=== PATIENT | female | born 1970 | race Caucasian/White ===

== ENCOUNTER 2019-06-02 06:00 | Inpatient (IN) | payer OTHER ==
[~2019-06-02] VITALS: Ht 157.5 cm; Wt 117.9 kg
[2019-06-02] MEDS ORDERED: CEFAZOLIN SOD 2 GM in D5W 50 ML IV ONE (07:00)
[2019-06-02] MEDS ORDERED: TRAZ150T77 PO (07:12)
[2019-06-02] MEDS ORDERED: SERT50TA12 PO (07:12)
[2019-06-02] MEDS ORDERED: BEN50 PO (07:12)
[2019-06-02] MEDS ORDERED: MIDAZOLAM HCL 5 MG/5 ML VIAL IVP ONE (10:34)
[2019-06-02] MEDS ORDERED: ePHEDrine sulfate 50 MG/ML VIAL IVP ONE (10:34)
[2019-06-02] MEDS ORDERED: LR 1,000 ML IV.SOLN IV ONE (10:34)
[2019-06-02] MEDS ORDERED: BACITRACIN ZINC 15 GM TOPICAL OINTMENT TP ONE (10:34)
[2019-06-02] MEDS ORDERED: ISOFLURANE 15 MIN GAS INH ONE (10:34)
[2019-06-02] MEDS ORDERED: PROPOFOL 200MG/ 20ML VIAL (DIPRIVAN) IV ONE (10:34)
[2019-06-02] MEDS ORDERED: HYDROmorphone 2 MG/ML VIAL IVP ONE (10:34)
[2019-06-02] MEDS ORDERED: DEXAMETHASONE SOD PHOSPHATE 4 MG/ML VIAL IVP ONE (10:34)
[2019-06-02] MEDS ORDERED: fentaNYL CITRATE/PF 100 MCG/2 ML AMP IVP ONE (10:34)
[2019-06-02] MEDS ORDERED: LIDOCAINE/EPI 1% 1:100000 20 ML VIAL INJ ONE (10:34)
[2019-06-02] MEDS ORDERED: NS IRRIG SOLN 1000 ML IR ONE (10:34)
[2019-06-02] MEDS ORDERED: SUCCINYLCHOLINE CHLORIDE 20 MG/ML(QUELICIN) IVP ONE (10:34)
[2019-06-02] MEDS ORDERED: ROCURONIUM BROMIDE 10 MG/ML (ZEMURON) IV ONE (10:34)
[2019-06-02] MEDS ORDERED: KCL 20 mEq in D5/0.45NS 1000mL 1,000 ML IV SCH (15:55)
[2019-06-02] MEDS ORDERED: ONDANSETRON 4 MG ODT TAB PO PRN (16:00)
[2019-06-02] MEDS ORDERED: ONDANSETRON HCL 4 MG/2 ML VIAL IVP PRN ×2 (16:00→16:15)
[2019-06-02] MEDS ORDERED: HYDROmorphone 1 MG INJ. 1 MG/ML AMPUL IVP PRN (16:15)
[2019-06-02] MEDS ORDERED: HYDROmorphone 1 MG INJ. 1 MG/ML AMPUL ONE (16:30)
[2019-06-02 16:55] VITALS: BP_SYST 133
[2019-06-02] MEDS: KCL 20 mEq in D5/0.45NS 1000mL 1,000 ML IV SCH (17:45)
[2019-06-02 20:00] VITALS: BP_SYST 130
[2019-06-02] MEDS: CALCIUM 500 MG/TAB PO SCH (20:56)
[2019-06-02] MEDS: HYDROcodone/ACETAMIN 5-325 MG TAB (NORCO/ VICODIN) PO PRN (20:57)
[2019-06-02] MEDS ORDERED: traZODone HCL 50 MG TABLET (DESYREL) PO SCH (21:00)
[2019-06-02] MEDS ORDERED: DIPHENHYDRAMINE HCL 50 MG CAPSULE PO SCH (21:00)
[2019-06-02] MEDS ORDERED: SERTRALINE HCL 50 MG TABLET PO SCH (21:00)
[2019-06-02 21:29] LABS: ALBUMIN 3.1 g/dL (3.4-4.8); CALCIUM 7.6 mg/dL (8.4-11.0)
[2019-06-03] MEDS: KCL 20 mEq in D5/0.45NS 1000mL 1,000 ML IV SCH ×2 (00:19→06:22)
[2019-06-03 00:42] VITALS: BP_SYST 100
[2019-06-03] MEDS: HYDROcodone/ACETAMIN 5-325 MG TAB (NORCO/ VICODIN) PO PRN ×2 (04:35→09:12)
[2019-06-03 06:49] LABS: ALBUMIN 3.1 g/dL (3.4-4.8); CALCIUM 7.7 mg/dL (8.4-11.0)
[2019-06-03] MEDS ORDERED: LEVOTHYROXINE SODIUM 0.15 MG TABLET PO SCH (07:00)
[2019-06-03 08:00] VITALS: BP_SYST 117
[2019-06-03] MEDS: CALCIUM 500 MG/TAB PO SCH (08:47)
[2019-06-03 10:24] VITALS: BP_SYST 93
[2019-06-03 12:38] VITALS: BP_SYST 93
== END 2019-06-03 13:50 | disposition home or self-care (01) | DRG 626 ==
LOC: SMU 06:00 → STU 16:49
PROVIDERS: ADMIT Otolaryngology; ATTEND Otolaryngology
PROC: 0GTK0ZZ Resection of Thyroid Gland, Open Approach (ICD-10-PCS; principal; 2019-06-03)
PROC: 4A11X4G Monitoring of Peripheral Nervous Electrical Activity, Intraoperative, External Approach (ICD-10-PCS; 2019-06-03)
DX: C73 Malignant neoplasm of thyroid gland (principal); Z68.42 Body mass index [BMI] 45.0-49.9, adult; J45.909 Unspecified asthma, uncomplicated; E04.2 Nontoxic multinodular goiter; E06.9 Thyroiditis, unspecified; E66.01 Morbid (severe) obesity due to excess calories; G43.909 Migraine, unspecified, not intractable, without status migrainosus; Z79.899 Other long term (current) drug therapy; Z91.040 Latex allergy status; Z91.048 Other nonmedicinal substance allergy status
CPT/HCPCS: 36415; 82040-TC; 82310-TC; 83970; 87081; 88307; G0378; J0330; J0690; J1100; J1170; J2250; J2704; J3010; J7060; J7120; Q0163

== ENCOUNTER 2021-09-22 08:00 | Outpatient (CLI) | payer OTHER ==
[~2021-09-22] VITALS: Ht 157.5 cm; Wt 132.4 kg
[~2021-09-22 08:00] MED LIST: BEN50 PO; SERT-436 PO; TRAZ150T77 PO
== END 2021-09-22 15:00 | disposition home or self-care (01) ==
LOC: SLB 08:00 → EDSTATUS 09-26 10:00
PROVIDERS: ATTEND Internal Medicine
DX: Z01.812 Encounter for preprocedural laboratory examination (principal); Z20.822 Contact with and (suspected) exposure to COVID-19
CPT/HCPCS: 36415; U0003

== ENCOUNTER 2022-04-17 06:29 | Day surgery (SDC) | payer OTHER ==
[~2022-04-17] VITALS: Ht 157.5 cm; Wt 134.5 kg
[2022-04-17] MEDS ORDERED: SIMETHICONE 40 MG/0.6 ML ML ONE (08:11)
[2022-04-17] MEDS ORDERED: fentaNYL CITRATE/PF 100 MCG/2 ML AMP ONE (08:11)
[2022-04-17] MEDS ORDERED: MIDAZOLAM HCL 5 MG/5 ML VIAL ONE ×2 (08:12→08:50)
[2022-04-17] MEDS ORDERED: MEPERIDINE HCL/PF 25 MG/ML DISP.SYRIN ONE (08:35)
[2022-04-17] MEDS ORDERED: BENZOCAINE 20% 0.5mL UD SPRAY MM ONE (08:36)
[2022-04-17] MEDS ORDERED: DIPHENHYDRAMINE INJ 50 MG/ML VIAL ONE (08:49)
[2022-04-17] MEDS ORDERED: ONDANSETRON HCL 4 MG/2 ML VIAL ONE (09:02)
[2022-04-17 12:11] VITALS: BP_SYST 107
== END 2022-04-17 10:00 | disposition home or self-care (01) ==
LOC: SDS 06:29 → SMU 06:32 → SDS 10:00
PROVIDERS: ATTEND Internal Medicine
DX: Z12.11 Encounter for screening for malignant neoplasm of colon (principal); K29.50 Unspecified chronic gastritis without bleeding; K44.9 Diaphragmatic hernia without obstruction or gangrene; E66.01 Morbid (severe) obesity due to excess calories; K21.9 Gastro-esophageal reflux disease without esophagitis; R13.13 Dysphagia, pharyngeal phase; Z98.84 Bariatric surgery status; Z79.899 Other long term (current) drug therapy; Z88.1 Allergy status to other antibiotic agents; Z68.43 Body mass index [BMI] 50.0-59.9, adult; Z20.822 Contact with and (suspected) exposure to COVID-19
CPT/HCPCS: 36415; 45380; 43239; 88305; 88312; 88313; 99152; 99153; U0003; G0378; J1200; J2250; J2405; J2175; J3010